=== PATIENT | male | born 1965 | race Caucasian/White ===

== ENCOUNTER 2022-02-17 14:09 | Inpatient (IN) | payer MEDICAID, OTHER ==
[~2022-02-17] VITALS: Ht 180.3 cm; Wt 73.9 kg
[~2022-02-17 14:09] MED LIST: AMA1 PO; AMLO10TA80 PO; BENA40TA91 PO; CALCIUM ACETATE PO; CLON0.3T PO; FERR-43 PO; FOLI1TAB87 PO; HYDR100T26 PO; LOSA100T32 PO; SEVE800T8 PO; SIMV-43 PO; SODI15OR8 PO; SODI650T PO
[2022-02-17 15:38] LABS: HEMATOCRIT. 35.9 % (42.0-52.0); HEMOGLOBIN. 12.2 g/dL (14.0-18.0); MEAN CORPUSCULAR HEMOGLOBIN 34.2 pg (28.0-32.0); MEAN CORPUSCULAR VOLUME 100.4 fL (80.0-94.0); MEAN PLATELET VOLUME 10.5 fl (7.4-10.4); PLATELET 210 x1000/uL (130-400); RED BLOOD CELL COUNT 3.58 mill/uL (4.7-6.1); RED CELL DISTRIBUTION WIDTH 15.1 % (11.6-14.6)
[2022-02-17 15:45] LABS: CHLORIDE 94 mEq/L (98-107)
[2022-02-17 17:06] LABS: PLATELET ESTIMATE NORMAL
[2022-02-17] MEDS ORDERED: ASPIRIN 325MG EC TABLET PO NR (21:15)
[2022-02-17] MEDS ORDERED: CEFTRIAXONE 1 G PREMIX 50 ML IV NR (21:15)
[2022-02-17] MEDS ORDERED: AZITHROMYCIN 500MG/250ML 250 ML IV NR (22:00)
[2022-02-17] MEDS ORDERED: IPRATROPIUM/ALBUTEROL 0.5-3(2.5)MG/3ML NEB NEB PRN (23:30)
[2022-02-17] MEDS ORDERED: LORAZEPAM 2MG/ML CPJ IV PRN (23:30)
[2022-02-17] MEDS ORDERED: MORPHINE SULFATE 2 MG/ML CPJ (NOT FOR IM USE) IV PRN (23:30)
[2022-02-17] MEDS ORDERED: ACETAMINOPHEN 650MG/20.3ML UDC GT PRN (23:30)
[2022-02-17] MEDS ORDERED: HYDROCODONE/ACETAMINOPHEN 5/325MG TABLET PO PRN (23:30)
[2022-02-18] VITALS (19 sets, daily range): BP systolic 131–212; BP diastolic 59–94
[2022-02-18] MEDS: LISINOPRIL 10MG TABLET PO SCH ×2 (01:22→09:50)
[2022-02-18] MEDS: FOLIC ACID 1MG TABLET PO SCH (09:51)
[2022-02-18] MEDS: ENOXAPARIN 30MG/0.3ML SYR SUBCUT SCH (09:51)
[2022-02-18] MEDS: AMLODIPINE 10MG TABLET PO SCH (09:51)
[2022-02-18] MEDS ORDERED: AZITHROMYCIN 500MG/250ML 250 ML IV ONE (11:00)
[2022-02-18] MEDS ORDERED: CEFTRIAXONE 1 G PREMIX 50 ML IV SCH (11:00)
[2022-02-18] MEDS: GUAIFENESIN 600MG ER TABLET PO SCH ×2 (11:40→21:32)
[2022-02-18] MEDS: ONDANSETRON HCL 4MG/2ML INJ IV PRN (14:08)
[2022-02-18] MEDS ORDERED: METOPROLOL TARTRATE 5MG/5ML VIAL IV NR ×2 (14:15→17:55)
[2022-02-18] MEDS: CLONIDINE 0.1MG TABLET PO PRN (16:22)
[2022-02-18] MEDS ORDERED: NICARDIPINE 40MG/200ML PREMIX 200 ML IV PRN (17:45)
[2022-02-18] MEDS: METOCLOPRAMIDE HCL 10MG/2ML VIAL IV SCH (18:02)
[2022-02-18] MEDS: CEFTRIAXONE 1,000 MG in DEXTROSE 5% WATER 50 ML IV SCH (21:46)
[2022-02-18] MEDS: NICARDIPINE 50 MG in SODIUM CHLORIDE 0.9% 250 ML IV PRN (21:47)
[2022-02-18] MEDS: AZITHROMYCIN 250 MG in DEXT 5% WATER 250 ML IV SCH (22:51)
[2022-02-19] VITALS (92 sets, daily range): BP systolic 127–184; BP diastolic 54–86
[2022-02-19] MEDS: METOCLOPRAMIDE HCL 10MG/2ML VIAL IV SCH ×5 (01:14→23:19)
[2022-02-19 05:47] LABS: BASOPHILS % 0.9 % (0.0-2.0); HEMATOCRIT. 32.9 % (42.0-52.0); HEMOGLOBIN. 11.1 g/dL (14.0-18.0); LYMPHOCYTES % 12.9 % (20.0-50.0); MEAN CORPUSCULAR HEMOGLOBIN 34.2 pg (28.0-32.0); MEAN CORPUSCULAR VOLUME 100.9 fL (80.0-94.0); MEAN PLATELET VOLUME 11.2 fl (7.4-10.4); MONOCYTES % 3.9 % (2.0-8.0); NEUTROPHILS % 82.3 % (40.0-76.0); PLATELET 190 x1000/uL (130-400); RED BLOOD CELL COUNT 3.26 mill/uL (4.7-6.1); RED CELL DISTRIBUTION WIDTH 14.7 % (11.6-14.6)
[2022-02-19 06:11] LABS: PHOSPHORUS 4.6 mg/dL (2.5-4.9)
[2022-02-19] MEDS: MAGNESIUM/ALUMINUM HYDROXIDE/SIMETHICONE 30ML UDC PO PRN ×2 (06:48→18:22)
[2022-02-19] MEDS: AMLODIPINE 10MG TABLET PO SCH (09:29)
[2022-02-19] MEDS: FOLIC ACID 1MG TABLET PO SCH (09:29)
[2022-02-19] MEDS: GUAIFENESIN 600MG ER TABLET PO SCH ×2 (09:29→21:45)
[2022-02-19] MEDS: ENOXAPARIN 30MG/0.3ML SYR SUBCUT SCH (09:30)
[2022-02-19] MEDS: IPRATROPIUM/ALBUTEROL 0.5-3(2.5)MG/3ML NEB HHN SCH ×2 (09:35→20:59)
[2022-02-19] MEDS: LISINOPRIL 10MG TABLET PO SCH (10:48)
[2022-02-19] MEDS: HYDRALAZINE HCL 25MG TABLET PO SCH ×2 (13:06→21:46)
[2022-02-19] MEDS ORDERED: NALOXONE HCL 0.4MG/ML VIAL IV PRN (13:45)
[2022-02-19] MEDS: CLONIDINE 0.1MG TABLET PO PRN (17:22)
[2022-02-19] MEDS: NICARDIPINE 50 MG in SODIUM CHLORIDE 0.9% 250 ML IV PRN (17:23)
[2022-02-19] MEDS: ASPIRIN 81MG EC TABLET PO SCH (18:54)
[2022-02-19] MEDS: CEFTRIAXONE 1,000 MG in DEXTROSE 5% WATER 50 ML IV SCH (21:38)
[2022-02-19] MEDS: ATORVASTATIN CALCIUM 10MG TABLET PO SCH (21:45)
[2022-02-19] MEDS: METOPROLOL TARTRATE 25MG TABLET PO SCH (21:47)
[2022-02-19] MEDS: AZITHROMYCIN 250 MG in DEXT 5% WATER 250 ML IV SCH (22:47)
[2022-02-20] VITALS (30 sets, daily range): BP systolic 130–192; BP diastolic 59–99
[2022-02-20] MEDS: HYDRALAZINE 20MG/ML VIAL IV PRN ×3 (02:35→22:40)
[2022-02-20] MEDS: MAGNESIUM/ALUMINUM HYDROXIDE/SIMETHICONE 30ML UDC PO PRN (03:15)
[2022-02-20 05:36] LABS: BASOPHILS % 0.7 % (0.0-2.0); EOSINOPHILS % 0.9 % (0.0-5.0); HEMATOCRIT. 34.4 % (42.0-52.0); HEMOGLOBIN. 11.6 g/dL (14.0-18.0); LYMPHOCYTES % 12.4 % (20.0-50.0); MEAN CORPUSCULAR HEMOGLOBIN 33.9 pg (28.0-32.0); MEAN CORPUSCULAR VOLUME 100.5 fL (80.0-94.0); MONOCYTES % 5.1 % (2.0-8.0); NEUTROPHILS % 80.9 % (40.0-76.0); PLATELET 210 x1000/uL (130-400); RED BLOOD CELL COUNT 3.43 mill/uL (4.7-6.1); RED CELL DISTRIBUTION WIDTH 14.3 % (11.6-14.6)
[2022-02-20] MEDS: HYDRALAZINE HCL 25MG TABLET PO SCH ×3 (06:57→21:22)
[2022-02-20] MEDS: METOCLOPRAMIDE HCL 10MG/2ML VIAL IV SCH ×3 (06:58→18:23)
[2022-02-20] MEDS: IPRATROPIUM/ALBUTEROL 0.5-3(2.5)MG/3ML NEB HHN SCH ×2 (08:29→20:25)
[2022-02-20] MEDS: ENOXAPARIN 30MG/0.3ML SYR SUBCUT SCH (09:35)
[2022-02-20] MEDS: GUAIFENESIN 600MG ER TABLET PO SCH ×2 (09:35→21:17)
[2022-02-20] MEDS: LISINOPRIL 10MG TABLET PO SCH (09:35)
[2022-02-20] MEDS: FOLIC ACID 1MG TABLET PO SCH (09:36)
[2022-02-20] MEDS: METOPROLOL TARTRATE 25MG TABLET PO SCH ×2 (09:36→21:17)
[2022-02-20] MEDS: AMLODIPINE 10MG TABLET PO SCH (09:36)
[2022-02-20] MEDS: ASPIRIN 81MG EC TABLET PO SCH (09:36)
[2022-02-20] MEDS ORDERED: BENZONATATE 100MG CAPSULE PO PRN (10:30)
[2022-02-20] MEDS: BENZONATATE 100MG CAPSULE PO SCH ×2 (14:19→21:17)
[2022-02-20] MEDS: ONDANSETRON HCL 4MG/2ML INJ IV PRN ×2 (14:23→22:40)
[2022-02-20 15:14] LABS: HEPATITIS B SURFACE ANTIGEN NEGATIVE
[2022-02-20] MEDS: CLONIDINE 0.1MG TABLET PO PRN (18:23)
[2022-02-20] MEDS ORDERED: INSU100I24 SQ (19:09)
[2022-02-20] MEDS ORDERED: DEXTROSE 50% WATER 50ML SYRINGE IV PRN (19:30)
[2022-02-20] MEDS: ATORVASTATIN CALCIUM 10MG TABLET PO SCH (21:17)
[2022-02-20] MEDS: BLOOD SUGAR DIAGNOSTIC STRIP TEST SCH (21:18)
[2022-02-20] MEDS: AZITHROMYCIN 250 MG in DEXT 5% WATER 250 ML IV SCH (21:22)
[2022-02-20] MEDS: INSULIN LISPRO 100 UNITS/ML SUBCUT SCH (21:28)
[2022-02-20] MEDS: CEFTRIAXONE 1,000 MG in DEXTROSE 5% WATER 50 ML IV SCH (21:49)
[2022-02-21] VITALS (7 sets, daily range): BP systolic 158–238; BP diastolic 57–97
[2022-02-21] MEDS: METOCLOPRAMIDE HCL 10MG/2ML VIAL IV SCH ×4 (00:07→17:47)
[2022-02-21] MEDS: BENZONATATE 100MG CAPSULE PO SCH ×3 (06:00→22:39)
[2022-02-21] MEDS: HYDRALAZINE HCL 25MG TABLET PO SCH ×3 (06:00→22:39)
[2022-02-21 06:17] LABS: BASOPHILS % 0.7 % (0.0-2.0); EOSINOPHILS % 1.1 % (0.0-5.0); HEMATOCRIT. 33.3 % (42.0-52.0); HEMOGLOBIN. 11.3 g/dL (14.0-18.0); LYMPHOCYTES % 12.9 % (20.0-50.0); MEAN CORPUSCULAR HEMOGLOBIN 33.6 pg (28.0-32.0); MEAN PLATELET VOLUME 11.2 fl (7.4-10.4); MONOCYTES % 7.5 % (2.0-8.0); NEUTROPHILS % 77.8 % (40.0-76.0); PLATELET 225 x1000/uL (130-400); RED BLOOD CELL COUNT 3.36 mill/uL (4.7-6.1); RED CELL DISTRIBUTION WIDTH 14.3 % (11.6-14.6)
[2022-02-21] MEDS: INSULIN LISPRO 100 UNITS/ML SUBCUT SCH ×4 (08:00→21:33)
[2022-02-21] MEDS: BLOOD SUGAR DIAGNOSTIC STRIP TEST SCH ×4 (08:18→21:00)
[2022-02-21] MEDS: IPRATROPIUM/ALBUTEROL 0.5-3(2.5)MG/3ML NEB HHN SCH ×2 (08:26→20:30)
[2022-02-21] MEDS: METOPROLOL TARTRATE 25MG TABLET PO SCH ×2 (09:00→21:30)
[2022-02-21] MEDS: GUAIFENESIN 600MG ER TABLET PO SCH ×2 (09:00→21:31)
[2022-02-21] MEDS: LISINOPRIL 10MG TABLET PO SCH (09:00)
[2022-02-21] MEDS: FOLIC ACID 1MG TABLET PO SCH (09:00)
[2022-02-21] MEDS: AMLODIPINE 10MG TABLET PO SCH (09:00)
[2022-02-21] MEDS: ASPIRIN 81MG EC TABLET PO SCH (09:00)
[2022-02-21] MEDS: HYDRALAZINE 20MG/ML VIAL IV PRN ×2 (10:20→17:48)
[2022-02-21] MEDS: ENOXAPARIN 30MG/0.3ML SYR SUBCUT SCH (10:21)
[2022-02-21] MEDS: ONDANSETRON HCL 4MG/2ML INJ IV PRN (10:21)
[2022-02-21] MEDS: CLONIDINE 0.1MG TABLET PO PRN (12:52)
[2022-02-21] MEDS ORDERED: NITROGLYCERIN OINT 1GM/INCH UDPKT TD NR (13:17)
[2022-02-21] MEDS ORDERED: METOPROLOL TARTRATE 5MG/5ML VIAL IV ONE (13:45)
[2022-02-21] MEDS ORDERED: METOPROLOL TARTRATE 5MG/5ML VIAL IV NR (13:45)
[2022-02-21] MEDS ORDERED: CLONIDINE HCL 0.1MG/24HR PATCH TD SCH ×2 (14:15→15:00)
[2022-02-21] MEDS: SUCRALFATE 1 G/10 ML UDC PO SCH ×3 (14:32→21:30)
[2022-02-21 16:24] LABS: PROTHROMBIN TIME 10.9 sec (9.6-11.0)
[2022-02-21] MEDS ORDERED: SUCRALFATE 1 G/10 ML UDC PO SCH (17:30)
[2022-02-21] MEDS: ATORVASTATIN CALCIUM 10MG TABLET PO SCH (21:31)
[2022-02-21] MEDS: CEFTRIAXONE 1,000 MG in DEXTROSE 5% WATER 50 ML IV SCH (22:39)
[2022-02-21] MEDS: AZITHROMYCIN 250 MG in DEXT 5% WATER 250 ML IV SCH (22:40)
[2022-02-22] VITALS (12 sets, daily range): BP systolic 127–197; BP diastolic 55–93
[2022-02-22] MEDS: METOCLOPRAMIDE HCL 10MG/2ML VIAL IV SCH ×4 (02:05→17:34)
[2022-02-22 05:00] LABS: CHLORIDE 92 mEq/L (98-107)
[2022-02-22 05:32] LABS: EOSINOPHILS % 0.7 % (0.0-5.0); HEMATOCRIT. 33.8 % (42.0-52.0); HEMOGLOBIN. 11.5 g/dL (14.0-18.0); LYMPHOCYTES % 13.3 % (20.0-50.0); MEAN CORPUSCULAR HEMOGLOBIN 33.8 pg (28.0-32.0); MEAN CORPUSCULAR VOLUME 99.2 fL (80.0-94.0); MONOCYTES % 8.1 % (2.0-8.0); NEUTROPHILS % 76.9 % (40.0-76.0); PLATELET 258 x1000/uL (130-400); RED BLOOD CELL COUNT 3.41 mill/uL (4.7-6.1); RED CELL DISTRIBUTION WIDTH 14.3 % (11.6-14.6)
[2022-02-22] MEDS: BENZONATATE 100MG CAPSULE PO SCH ×2 (05:56→14:00)
[2022-02-22] MEDS: HYDRALAZINE HCL 25MG TABLET PO SCH ×3 (05:57→22:00)
[2022-02-22] MEDS: METOPROLOL TARTRATE 5MG/5ML VIAL IV PRN ×2 (06:07→16:26)
[2022-02-22] MEDS: SUCRALFATE 1 G/10 ML UDC PO SCH ×4 (06:12→22:35)
[2022-02-22] MEDS: HYDRALAZINE 20MG/ML VIAL IV PRN ×2 (07:29→13:25)
[2022-02-22] MEDS: BLOOD SUGAR DIAGNOSTIC STRIP TEST SCH ×4 (08:14→21:00)
[2022-02-22] MEDS: INSULIN LISPRO 100 UNITS/ML SUBCUT SCH ×4 (08:41→21:00)
[2022-02-22] MEDS: GUAIFENESIN 600MG ER TABLET PO SCH ×2 (08:42→22:36)
[2022-02-22] MEDS: FOLIC ACID 1MG TABLET PO SCH (08:42)
[2022-02-22] MEDS: ASPIRIN 81MG EC TABLET PO SCH (08:42)
[2022-02-22] MEDS: METOPROLOL TARTRATE 25MG TABLET PO SCH ×2 (08:43→21:00)
[2022-02-22] MEDS: LISINOPRIL 10MG TABLET PO SCH (08:43)
[2022-02-22] MEDS: AMLODIPINE 10MG TABLET PO SCH (08:43)
[2022-02-22] MEDS: ENOXAPARIN 30MG/0.3ML SYR SUBCUT SCH (09:00)
[2022-02-22] MEDS: IPRATROPIUM/ALBUTEROL 0.5-3(2.5)MG/3ML NEB HHN SCH (09:42)
[2022-02-22] MEDS: ONDANSETRON HCL 4MG/2ML INJ IV PRN ×2 (13:55→21:29)
[2022-02-22] MEDS: NITROGLYCERIN 0.4MG/HR PATCH TOP SCH (13:55)
[2022-02-22] MEDS ORDERED: CLONIDINE HCL 0.3MG/24HR PATCH TD SCH (14:30)
[2022-02-22] MEDS: ATORVASTATIN CALCIUM 10MG TABLET PO SCH (21:00)
[2022-02-22] MEDS: NICARDIPINE 50 MG in SODIUM CHLORIDE 0.9% 230 ML IV PRN ×2 (21:05→21:52)
[2022-02-23] VITALS (72 sets, daily range): BP systolic 125–190; BP diastolic 51–92
[2022-02-23] MEDS: IPRATROPIUM/ALBUTEROL 0.5-3(2.5)MG/3ML NEB HHN SCH ×3 (00:15→19:43)
[2022-02-23] MEDS: CEFTRIAXONE 1,000 MG in DEXTROSE 5% WATER 50 ML IV SCH ×2 (01:21→20:58)
[2022-02-23] MEDS: BENZONATATE 100MG CAPSULE PO SCH ×4 (01:37→21:53)
[2022-02-23] MEDS: METOCLOPRAMIDE HCL 10MG/2ML VIAL IV SCH ×4 (01:38→17:52)
[2022-02-23] MEDS ORDERED: MORPHINE SULFATE 2 MG/ML CPJ (NOT FOR IM USE) IV PRN (03:30)
[2022-02-23] MEDS: HYDRALAZINE HCL 25MG TABLET PO SCH ×3 (06:00→21:54)
[2022-02-23] MEDS: SUCRALFATE 1 G/10 ML UDC PO SCH ×4 (07:50→20:58)
[2022-02-23] MEDS: BLOOD SUGAR DIAGNOSTIC STRIP TEST SCH ×4 (07:50→20:59)
[2022-02-23] MEDS: INSULIN LISPRO 100 UNITS/ML SUBCUT SCH ×4 (08:00→21:30)
[2022-02-23] MEDS: METOPROLOL TARTRATE 25MG TABLET PO SCH ×2 (08:08→20:59)
[2022-02-23] MEDS: ASPIRIN 81MG EC TABLET PO SCH (08:08)
[2022-02-23] MEDS: GUAIFENESIN 600MG ER TABLET PO SCH ×2 (08:08→20:59)
[2022-02-23] MEDS: FOLIC ACID 1MG TABLET PO SCH (08:08)
[2022-02-23] MEDS: AMLODIPINE 10MG TABLET PO SCH (08:09)
[2022-02-23] MEDS: LISINOPRIL 10MG TABLET PO SCH (08:09)
[2022-02-23] MEDS: ENOXAPARIN 30MG/0.3ML SYR SUBCUT SCH (08:16)
[2022-02-23] MEDS: NITROGLYCERIN 0.4MG/HR PATCH TOP SCH (08:16)
[2022-02-23 09:06] LABS: BASOPHILS % 1.1 % (0.0-2.0); HEMATOCRIT. 30.3 % (42.0-52.0); HEMOGLOBIN. 10.5 g/dL (14.0-18.0); LYMPHOCYTES % 10.7 % (20.0-50.0); MEAN CORPUSCULAR HEMOGLOBIN 33.6 pg (28.0-32.0); MEAN CORPUSCULAR VOLUME 97.2 fL (80.0-94.0); MEAN PLATELET VOLUME 9.7 fl (7.4-10.4); MONOCYTES % 6.2 % (2.0-8.0); PLATELET 280 x1000/uL (130-400); RED BLOOD CELL COUNT 3.12 mill/uL (4.7-6.1)
[2022-02-23] MEDS: ONDANSETRON HCL 4MG/2ML INJ IV SCH ×2 (12:51→17:52)
[2022-02-23] MEDS: METOPROLOL TARTRATE 5MG/5ML VIAL IV PRN (12:55)
[2022-02-23] MEDS: HYDRALAZINE 20MG/ML VIAL IV SCH ×2 (14:22→20:58)
[2022-02-23] MEDS: ATORVASTATIN CALCIUM 10MG TABLET PO SCH (20:59)
[2022-02-24] VITALS (83 sets, daily range): BP systolic 115–186; BP diastolic 48–97
[2022-02-24] MEDS: METOCLOPRAMIDE HCL 10MG/2ML VIAL IV SCH ×4 (00:11→18:24)
[2022-02-24] MEDS: ONDANSETRON HCL 4MG/2ML INJ IV SCH ×4 (00:11→18:24)
[2022-02-24] MEDS: HYDRALAZINE 20MG/ML VIAL IV SCH ×2 (02:08→08:58)
[2022-02-24 05:52] LABS: HEMOGLOBIN. 10.8 g/dL (14.0-18.0); MEAN CORPUSCULAR VOLUME 100.2 fL (80.0-94.0); MEAN PLATELET VOLUME 10.5 fl (7.4-10.4); PLATELET 333 x1000/uL (130-400); RED BLOOD CELL COUNT 3.19 mill/uL (4.7-6.1); RED CELL DISTRIBUTION WIDTH 14.3 % (11.6-14.6)
[2022-02-24 05:57] LABS: PROTHROMBIN TIME 10.9 sec (9.6-11.0)
[2022-02-24] MEDS: BENZONATATE 100MG CAPSULE PO SCH ×3 (06:13→21:14)
[2022-02-24] MEDS: HYDRALAZINE HCL 25MG TABLET PO SCH (06:13)
[2022-02-24 07:42] LABS: PLATELET ESTIMATE NORMAL
[2022-02-24] MEDS: IPRATROPIUM/ALBUTEROL 0.5-3(2.5)MG/3ML NEB HHN SCH ×2 (07:43→21:54)
[2022-02-24] MEDS: INSULIN LISPRO 100 UNITS/ML SUBCUT SCH (08:20)
[2022-02-24] MEDS: BLOOD SUGAR DIAGNOSTIC STRIP TEST SCH (08:41)
[2022-02-24] MEDS: SUCRALFATE 1 G/10 ML UDC PO SCH ×4 (08:41→21:13)
[2022-02-24] MEDS: LISINOPRIL 10MG TABLET PO SCH (08:42)
[2022-02-24] MEDS: ASPIRIN 81MG EC TABLET PO SCH (08:42)
[2022-02-24] MEDS: NITROGLYCERIN 0.4MG/HR PATCH TOP SCH (08:42)
[2022-02-24] MEDS: ENOXAPARIN 30MG/0.3ML SYR SUBCUT SCH (08:42)
[2022-02-24] MEDS: GUAIFENESIN 600MG ER TABLET PO SCH ×2 (08:42→21:13)
[2022-02-24] MEDS: AMLODIPINE 10MG TABLET PO SCH (08:42)
[2022-02-24] MEDS: FOLIC ACID 1MG TABLET PO SCH (08:42)
[2022-02-24] MEDS: METOPROLOL TARTRATE 25MG TABLET PO SCH (08:43)
[2022-02-24] MEDS ORDERED: PROPOFOL 200MG/20ML VIAL IV ONE (11:08)
[2022-02-24] MEDS ORDERED: DEXAMETHASONE 4MG/ML 1ML VIAL ONE (11:18)
[2022-02-24] MEDS ORDERED: ONDANSETRON HCL 4MG/2ML INJ ONE (11:18)
[2022-02-24] MEDS ORDERED: MIDAZOLAM HCL 2 MG/2 ML VIAL ONE (11:34)
[2022-02-24] MEDS ORDERED: PANTOPRAZOLE SODIUM 40 MG/VIAL IV NR (12:30)
[2022-02-24] MEDS: PANTOPRAZOLE SODIUM 40 MG/VIAL IV SCH ×2 (13:03→18:24)
[2022-02-24] MEDS ORDERED: HYDRALAZINE HCL 100MG TABLET PO SCH (14:00)
[2022-02-24] MEDS ORDERED: NALOXONE HCL 0.4MG/ML VIAL IV PRN (15:30)
[2022-02-24] MEDS ORDERED: MINOXIDIL 10MG TABLET PO SCH (16:00)
[2022-02-24] MEDS ORDERED: LISINOPRIL 20MG TABLET PO SCH (17:00)
[2022-02-24] MEDS ORDERED: PANTOPRAZOLE SODIUM 40 MG/VIAL IV ONE (18:00)
[2022-02-24] MEDS: CARVEDILOL 12.5MG TABLET PO SCH (21:14)
[2022-02-24] MEDS: ATORVASTATIN CALCIUM 10MG TABLET PO SCH (21:14)
[2022-02-25] VITALS (25 sets, daily range): BP systolic 107–167; BP diastolic 52–78
[2022-02-25] MEDS: ONDANSETRON HCL 4MG/2ML INJ IV SCH ×3 (00:38→11:51)
[2022-02-25] MEDS: METOCLOPRAMIDE HCL 10MG/2ML VIAL IV SCH ×3 (00:39→11:51)
[2022-02-25] MEDS: BENZONATATE 100MG CAPSULE PO SCH (05:02)
[2022-02-25 05:52] LABS: BASOPHILS % 0.3 % (0.0-2.0); EOSINOPHILS % 0.1 % (0.0-5.0); HEMATOCRIT. 29.3 % (42.0-52.0); HEMOGLOBIN. 10.1 g/dL (14.0-18.0); LYMPHOCYTES % 8.8 % (20.0-50.0); MEAN CORPUSCULAR HEMOGLOBIN 34.3 pg (28.0-32.0); MEAN CORPUSCULAR VOLUME 99.7 fL (80.0-94.0); MEAN PLATELET VOLUME 10.2 fl (7.4-10.4); MONOCYTES % 9.1 % (2.0-8.0); NEUTROPHILS % 81.7 % (40.0-76.0); PLATELET 309 x1000/uL (130-400); RED BLOOD CELL COUNT 2.94 mill/uL (4.7-6.1); RED CELL DISTRIBUTION WIDTH 13.9 % (11.6-14.6)
[2022-02-25] MEDS: IPRATROPIUM/ALBUTEROL 0.5-3(2.5)MG/3ML NEB HHN SCH (07:49)
[2022-02-25] MEDS ORDERED: PANTOPRAZOLE 40MG DR TABLET PO SCH (07:50)
[2022-02-25] MEDS: NITROGLYCERIN 0.4MG/HR PATCH TOP SCH (08:02)
[2022-02-25] MEDS: ASPIRIN 81MG EC TABLET PO SCH (08:03)
[2022-02-25] MEDS: ENOXAPARIN 30MG/0.3ML SYR SUBCUT SCH (08:03)
[2022-02-25] MEDS: AMLODIPINE 10MG TABLET PO SCH (08:03)
[2022-02-25] MEDS: FOLIC ACID 1MG TABLET PO SCH (08:03)
[2022-02-25] MEDS: SUCRALFATE 1 G/10 ML UDC PO SCH ×2 (08:04→11:53)
[2022-02-25] MEDS: GUAIFENESIN 600MG ER TABLET PO SCH (08:04)
[2022-02-25] MEDS: CARVEDILOL 12.5MG TABLET PO SCH (08:04)
[2022-02-25] MEDS ORDERED: COR12 PO (11:25)
[2022-02-25] MEDS ORDERED: OMEP40CA20 MT (11:26)
[2022-02-25] MEDS ORDERED: SUCR1TAB MT (11:26)
[2022-02-25] MEDS ORDERED: LISINOPRIL 10MG TABLET PO SCH ×2 (11:30→14:00)
== END 2022-02-25 14:03 | disposition left against medical advice (07) | DRG 720 ==
LOC: ER 14:09 → MICUSO 22:53 → EDBEDREQTM 23:20 → EDBEDREQ 23:20 → ENRESERV 23:43 → 7WST 02-18 01:16 → MICUSO 02-18 20:45 → 5EST 02-20 14:19 → CVICU 02-22 20:24
PROVIDERS: ADMIT Internal Medicine Nephrology; ATTEND Internal Medicine Nephrology
PROC: 5A1D80Z Performance of Urinary Filtration, Prolonged Intermittent, 6-18 hours Per Day (ICD-10-PCS; 2022-02-18)
PROC: 5A1D70Z Performance of Urinary Filtration, Intermittent, Less than 6 Hours Per Day (ICD-10-PCS; 2022-02-20)
PROC: 5A1D70Z Performance of Urinary Filtration, Intermittent, Less than 6 Hours Per Day (ICD-10-PCS; 2022-02-23)
PROC: 0DB78ZX Excision of Stomach, Pylorus, Via Natural or Artificial Opening Endoscopic, Diagnostic (ICD-10-PCS; principal; 2022-02-24)
PROC: 5A1D70Z Performance of Urinary Filtration, Intermittent, Less than 6 Hours Per Day (ICD-10-PCS; 2022-02-24)
DX: A41.9 Sepsis, unspecified organism (principal); J96.01 Acute respiratory failure with hypoxia; I21.4 Non-ST elevation (NSTEMI) myocardial infarction; I50.23 Acute on chronic systolic (congestive) heart failure; I85.00 Esophageal varices without bleeding; J18.9 Pneumonia, unspecified organism; N18.6 End stage renal disease; D63.1 Anemia in chronic kidney disease; E87.1 Hypo-osmolality and hyponatremia; I13.2 Hypertensive heart and chronic kidney disease with heart failure and with stage 5 chronic kidney disease, or end stage renal disease; K22.10 Ulcer of esophagus without bleeding; E11.22 Type 2 diabetes mellitus with diabetic chronic kidney disease; K26.3 Acute duodenal ulcer without hemorrhage or perforation; Z20.822 Contact with and (suspected) exposure to COVID-19; E78.5 Hyperlipidemia, unspecified; I16.0 Hypertensive urgency; Z53.29 Procedure and treatment not carried out because of patient's decision for other reasons; D53.9 Nutritional anemia, unspecified; K29.80 Duodenitis without bleeding; Z99.2 Dependence on renal dialysis; Z79.899 Other long term (current) drug therapy
CPT/HCPCS: 36415; 71045; 74176; 76700; 76770; 80048; 80053; 82270; 82962; 83036; 83605; 83735; 83880; 84100; 84145; 84484; 85025; 86705; 86709; 86803; 87070; 87106; 87340; 87426; 87804; 88305; 93005; 93306; 93970; 94640; 99291; C9113; C9803; J0360; J0456; J0696; J1100; J1650; J1815; J2250; J2405; J2704; J2765; J3490; J7050; J7060